=== PATIENT | female | born 1980 ===

== ENCOUNTER 2018-06-09 19:25 | Outpatient (CLI) | payer OTHER | END 2018-06-09 22:00 | disposition home or self-care (01) | LOC: EDBD 19:25 → EDSEX 19:25 → LAB 19:25 | DX: N91.2 Amenorrhea, unspecified (principal) ==

== ENCOUNTER → 2019-10-13 | Outpatient (CLI) | payer OTHER | END | disposition home or self-care (01) | LOC: MAMO-SONO 07:51 | PROVIDERS: ATTEND Obstetrics & Gynecology | DX: Z12.31 Encounter for screening mammogram for malignant neoplasm of breast (principal); N60.21 Fibroadenosis of right breast; N60.22 Fibroadenosis of left breast ==